=== PATIENT | female | born 1960 | race Caucasian/White ===

== ENCOUNTER 2019-04-13 12:16 | Observation (INO) ==
[2019-04-13] MEDS ORDERED: Vancomycin 1,000 MG VIAL IVPB ONE (12:26)
[2019-04-13] MEDS ORDERED: Ipratropium/Albuterol Neb 3 ML IH ONE (12:26)
[2019-04-13] MEDS ORDERED: cefTRIAXone 1,000 MG in Water for inj. (sterile) 10 ML IVP ONE (12:26)
[2019-04-13] MEDS ORDERED: Azithromycin 500 MG in 0.9 % Sodium Chloride 250 ML IVPB ONE (12:26)
[2019-04-13 12:55] LABS: Basophils % 0.1 %; Eosinophils % 0.1 %; Hematocrit 34.6 % (35.3-44.9); Hemoglobin 11.7 g/dL (11.5-15.4); Immature Granulocytes % 1.1 % (0-4); Lymphocytes # 1.4 K/mcL (0.6-4.6); Lymphocytes % 13.6 %; Mean Corpuscular HGB Conc 33.8 g/dL (31.6-35.5); Mean Corpuscular Hemoglobin 25.9 pg (28.0-33.3); Mean Corpuscular Volume 76.7 fL (83.0-100.0); Mean Platelet Volume 11.7 fL (9.4-12.4); Monocytes # 1.2 K/mcL (0.0-1.3); Monocytes % 11.9 %; Neutrophils # 7.4 K/mcL (1.6-8.9); Platelet Count 118 K/mcL (140-400); Red Blood Count 4.51 M/mcL (3.82-4.97); Red Cell Distribution Width 16.7 % (11.5-14.5); Segmented Neutrophils % 73.2 %; White Blood Count 10.1 K/mcL (4.3-11.1)
[2019-04-13 13:02] LABS: INR 1.3; Prothrombin Time 15.3 Seconds (9.4-12.1)
[2019-04-13 13:05] LABS: Activated Partial Thrombo Time 30.6 Seconds (26.0-36.0)
[2019-04-13 13:21] LABS: BUN/Creatinine Ratio 17 (6-26); Blood Urea Nitrogen 13 mg/dL (8-23); Calcium 8.7 mg/dL (8.6-10.3); Carbon Dioxide 21 mEq/L (23-29); Chloride 92 mEq/L (98-107); Glucose 111 mg/dL (70-105); Osmolality,Calculated 263 (280-300); Potassium 3.2 mEq/L (3.5-5.1); Sodium 126 mEq/L (136-145); Troponin I < 0.03 ng/mL (< 0.04); eGFR For African Americans > 60 (> 60); eGFR For Non-African Americans > 60 (> 60)
[2019-04-13] MEDS ORDERED: 0.9 % Sodium Chloride 500 ML IVC ONE (13:32)
[2019-04-13] MEDS ORDERED: Diltiazem CD (24hr) 180 MG CAPSULE PO ONE (14:30)
[2019-04-13] MEDS ORDERED: Naloxone 0.4 MG/ML INJ IVP PRN (14:40)
[2019-04-13] MEDS ORDERED: Ipratropium/Albuterol Neb 3 ML IH PRN (14:41)
[2019-04-13] MEDS ORDERED: EPINEPHrine 1 MG/ML VIAL IM PRN (14:41)
[2019-04-13] MEDS: Furosemide 40 MG TABLET PO SCH (16:13)
[2019-04-13] MEDS: Ipratropium/Albuterol Neb 3 ML IH SCH (16:32)
[2019-04-13] MEDS ORDERED: NON-FORMULARY MEDICATION 1 EACH EACH (Ipratropium/Albuterol Sulfate [Combivent Respimat 20 IH SCH (17:00)
[2019-04-13] MEDS: *HR* Heparin 5,000 UNIT/ML VIAL SQ SCH (18:17)
[2019-04-13] MEDS ORDERED: Chloraseptic Spray 177 ML BOTTLE MM PRN (18:27)
[2019-04-13] MEDS ORDERED: 0.9 % Sodium Chloride 1,000 ML IVC SCH (18:30)
[2019-04-13 18:41] LABS: Bilirubin,Urine Small (Negative); Blood,Urine Negative (Negative); Clarity,Urine Cloudy (Clear); Color,Urine Dark Yellow (Yellow); Glucose,Urine (UA) Normal (Normal); Ketones,Urine Negative (Negative); Leukocyte Esterase,Urine Negative (Negative); Nitrite,Urine Negative (Negative); Protein,Urine Negative (Neg-Trace); Specific Gravity,Urine 1.013 (1.010-1.025); Urobilinogen,Urine Normal (Normal)
[2019-04-13 18:44] LABS: Bacteria,Urine None Seen per hpf (None-Few); Hyaline Casts,Urine None Seen per lpf (None-Few); Squamous Epithelial Cell,Urine Many per lpf (None-Few)
[2019-04-13] MEDS: hydrALAZINE 25 MG TABLET PO SCH (21:49)
[2019-04-14 02:43] LABS: Basophils % 0.4 %; Eosinophils # 0.1 K/mcL (0.0-0.6); Eosinophils % 1.6 %; Hematocrit 32.7 % (35.3-44.9); Hemoglobin 10.5 g/dL (11.5-15.4); Immature Granulocytes % 1.9 % (0-4); Lymphocytes # 1.1 K/mcL (0.6-4.6); Lymphocytes % 16.7 %; Mean Corpuscular HGB Conc 32.1 g/dL (31.6-35.5); Mean Corpuscular Hemoglobin 25.1 pg (28.0-33.3); Mean Platelet Volume 12.1 fL (9.4-12.4); Monocytes # 0.8 K/mcL (0.0-1.3); Monocytes % 11.6 %; Neutrophils # 4.6 K/mcL (1.6-8.9); Platelet Count 126 K/mcL (140-400); Red Blood Count 4.19 M/mcL (3.82-4.97); Red Cell Distribution Width 17.1 % (11.5-14.5); Segmented Neutrophils % 67.8 %; White Blood Count 6.8 K/mcL (4.3-11.1)
[2019-04-14] MEDS: Ipratropium/Albuterol Neb 3 ML IH SCH ×4 (02:50→21:46)
[2019-04-14 02:59] LABS: BUN/Creatinine Ratio 20 (6-26); Blood Urea Nitrogen 12 mg/dL (8-23); Calcium 8.1 mg/dL (8.6-10.3); Carbon Dioxide 21 mEq/L (23-29); Chloride 95 mEq/L (98-107); Glucose 134 mg/dL (70-105); Osmolality,Calculated 264 (280-300); Potassium 2.9 mEq/L (3.5-5.1); Sodium 126 mEq/L (136-145); eGFR For African Americans > 60 (> 60); eGFR For Non-African Americans > 60 (> 60)
[2019-04-14] MEDS: *HR* Heparin 5,000 UNIT/ML VIAL SQ SCH ×2 (03:26→18:16)
[2019-04-14] MEDS ORDERED: Potassium Chloride 20 MEQ, Lidocaine 1% 2 ML in 0.9 % Sodium Chloride 250 ML IVPB ONE (08:18)
[2019-04-14] MEDS: hydrALAZINE 25 MG TABLET PO SCH ×2 (09:26→22:02)
[2019-04-14] MEDS: levoFLOXacin 750 MG/150 ML 750 MG/150 ML BAG IVPB SCH (09:33)
[2019-04-14] MEDS: Aspirin Enteric Coated 81 MG Tablet PO SCH (09:33)
[2019-04-14] MEDS: Furosemide 40 MG TABLET PO SCH ×2 (09:33→18:17)
[2019-04-14] MEDS: Diltiazem CD (24hr) 180 MG CAPSULE PO SCH (09:34)
[2019-04-14] MEDS: MethylPREDNISolone 40 MG/ML VIAL IVP SCH (12:18)
[2019-04-15] MEDS: Ipratropium/Albuterol Neb 3 ML IH SCH ×4 (03:21→16:07)
[2019-04-15 04:30] LABS: Potassium,Urine 19.2 mEq/L; Protein/Creatinine Ratio,Urine 0.17 mg/mg (0.00-0.20); Sodium, Urine 11.4 mEq/L
[2019-04-15] MEDS: *HR* Heparin 5,000 UNIT/ML VIAL SQ SCH (04:59)
[2019-04-15 05:26] LABS: Basophils % 0.3 %; Hematocrit 33.4 % (35.3-44.9); Hemoglobin 10.7 g/dL (11.5-15.4); Immature Granulocytes % 2.3 % (0-4); Lymphocytes # 0.6 K/mcL (0.6-4.6); Lymphocytes % 16.2 %; Mean Corpuscular Hemoglobin 25.1 pg (28.0-33.3); Mean Corpuscular Volume 78.2 fL (83.0-100.0); Mean Platelet Volume 11.4 fL (9.4-12.4); Monocytes # 0.2 K/mcL (0.0-1.3); Monocytes % 4.4 %; Platelet Count 145 K/mcL (140-400); Red Blood Count 4.27 M/mcL (3.82-4.97); Red Cell Distribution Width 17.1 % (11.5-14.5); Segmented Neutrophils % 76.8 %; White Blood Count 3.9 K/mcL (4.3-11.1)
[2019-04-15 06:48] LABS: BUN/Creatinine Ratio 18 (6-26); Blood Urea Nitrogen 10 mg/dL (8-23); Calcium 8.5 mg/dL (8.6-10.3); Carbon Dioxide 20 mEq/L (23-29); Chloride 98 mEq/L (98-107); Glucose 142 mg/dL (70-105); Magnesium 1.7 mg/dL (1.6-2.6); Osmolality,Calculated 267 (280-300); Potassium 4.3 mEq/L (3.5-5.1); Sodium 128 mEq/L (136-145); eGFR For African Americans > 60 (> 60); eGFR For Non-African Americans > 60 (> 60)
[2019-04-15] MEDS: hydrALAZINE 25 MG TABLET PO SCH (08:27)
[2019-04-15] MEDS: Diltiazem CD (24hr) 180 MG CAPSULE PO SCH (08:28)
[2019-04-15] MEDS: Aspirin Enteric Coated 81 MG Tablet PO SCH (08:28)
[2019-04-15] MEDS: levoFLOXacin 750 MG/150 ML 750 MG/150 ML BAG IVPB SCH (08:28)
[2019-04-15] MEDS: Furosemide 40 MG TABLET PO SCH (08:28)
[2019-04-15] MEDS: MethylPREDNISolone 40 MG/ML VIAL IVP SCH (08:29)
[2019-04-15 12:02] VITALS: BP 114/71
[2019-04-15] MEDS ORDERED: Aminoglycoside Consult 1 EACH MC ONE (17:23)
[2019-04-16] MEDS ORDERED: predniSONE 20 MG TABLET PO SCH (09:00)
[2019-04-16] MEDS ORDERED: levoFLOXacin 750 MG TABLET PO SCH (09:00)
== END 2019-04-15 17:24 | disposition home or self-care (01) ==
LOC: EMEROOARM 12:16 → 3BNU 12:16 → SUATTDRO 14:34 → 3BNU 15:27
PROVIDERS: ADMIT Internal Medicine; ATTEND Pharmacist